=== PATIENT | female | born 1945 | race Caucasian/White ===

== ENCOUNTER 2019-08-27 20:40 | Emergency (ER) | payer MEDICARE, OTHER ==
[~2019-08-27] VITALS: Ht 149.9 cm; Wt 72.6 kg
[2019-08-27 20:40] VITALS: BP 155/71
--- NOTE | 2019-08-27 20:40 | NUR ---
PT ANNIE BLS. TAKEN TO BED 10
--- NOTE | 2019-08-27 21:10 | NUR ---
Dr. Navarro examining patient.
--- NOTE | 2019-08-27 21:13 | NUR ---
ERMD EVALUATING PATIENT AT BEDSIDE.
--- NOTE | 2019-08-27 21:18 | NUR ---
74 Y/O FEMALE BIBA FROM [facility]. TRANSFERING TO SHOWER AND FELL. WITNESSED WITH NO ALOC AND IS ABLE TO FOLLOW COMM[facility] XRAY PERFORMED AT FACILITY. T10 FX FOUND. PT C/O SEVERE 9/10 PAIN. NON-AMBULATORY BASELINE. MOVES AROUND WITH WHEEL CHAIR. 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 PATIENT IS ABLE TO REPOSITION WITH ASSISTANCE. NO WOUNDS NOTED VSS. DAUGHTER AT BEDSIDE. ERMD MADE AWARE OF STATUS. PLACED ON MONITOR HX: SCHIZOPHRENIA ALLERGIES: SEE MED REC.
[2019-08-27] MEDS ORDERED: HYDROcodone/APAP 5/325 MG 1 TAB TAB PO ONE (21:25)
[2019-08-27 21:47] LABS: BASOPHILS # (AUTO) 0.1 K/uL (0.00-0.22); BASOPHILS % (AUTO) 0.9 % (0.0-2.0); EOSINOPHILS # (AUTO) 0.3 K/uL (0-0.4); EOSINOPHILS % (AUTO) 3.1 % (0.0-4.0); HEMATOCRIT 38.8 % (36-48); HEMOGLOBIN 12.9 g/dL (12.0-16.0); LYMPHOCYTES # (AUTO) 1.9 K/uL (2.5-16.5); LYMPHOCYTES % (AUTO) 17.9 % (20.5-51.1); MEAN CORPUSCULAR HEMOGLOBIN 30 pg (27-31); MEAN CORPUSCULAR HGB CONC 33 g/dL (33-37); MEAN CORPUSCULAR VOLUME 89.8 fL (80-94); MONOCYTES # (AUTO) 0.8 K/uL (0.8-1.0); MONOCYTES % (AUTO) 7.9 % (1.7-9.3); NEUTROPHILS # (AUTO) 7.5 K/uL (1.8-7.7); NEUTROPHILS % (AUTO) 70.2 % (42.2-75.2); PLATELET COUNT (AUTO) 363 K/uL (140-450); RED BLOOD CELL COUNT(AUTO) 4.32 MIL/uL (4.20-5.40); RED CELL DISTRIBUTION WIDTH 13.3 % (11.6-13.7); WHITE BLOOD COUNT (AUTO) 10.7 K/uL (4.8-10.8)
[2019-08-27 22:13] LABS: ANION GAP 13.7 (8-16); CHLORIDE 102 mmol/L (98-107); GLUCOSE 129 mg/dL (74-106); POTASSIUM 3.7 mmol/L (3.5-5.1); SODIUM SERUM 139 mmol/L (136-145); UREA NITROGEN, BLOOD 15 mg/dL (7-18)
[2019-08-27 22:14] LABS: CREATININE 0.6 mg/dL (0.6-1.3)
--- NOTE | 2019-08-27 22:15 | NUR ---
PATIENT TAKEN TO CT.
--- NOTE | 2019-08-27 22:46 | NUR ---
X-Ray at bedside.
--- NOTE | 2019-08-27 23:35 | NUR ---
REPOSITIONED PATIENT TO SUPINE WITH PILLOW WEDGE IN BETWEEN LEGS. VSS. WILL CONTINUE TO MONITOR.
--- NOTE | 2019-08-28 01:03 | NUR ---
PATIENT IN NO DISTRESS AT THIS TIME. WILL CONTINUE TO MONITOR.
[2019-08-28] MEDS ORDERED: HYDROcodone/APAP 5/325 MG 1 TAB TAB PO ONE (01:25)
--- NOTE | 2019-08-28 03:50 | NUR ---
PATIENT IS EATING QUIETLY IN BED.
--- NOTE | 2019-08-28 05:02 | NUR ---
GAVE REPORT TO JULIO ACEVES AT [facility]. [place] ETA [id number]. PT.'S VSS. NOTIFIED . WILL CONTINUE TO MONITOR.
[2019-08-28 05:30] VITALS: BP 121/49
--- NOTE | 2019-08-28 05:30 | NUR ---
Patient discharged with v/s stable. Written and verbal after care instructions given and explained. Patient alert, oriented and verbalized understanding of instructions. Ambulance Transport with to intermediate. All questions addressed prior to discharge. ID band removed. Patient advised to follow up with PMD. Rx of NORCO given. Patient educated on indication of medication including possible reaction and side effects. Opportunity to ask questions provided and answered.
== END 2019-08-28 05:30 | disposition home or self-care (01) ==
LOC: MED 20:40
DX: M54.9 Dorsalgia, unspecified (principal); M25.551 Pain in right hip; M79.604 Pain in right leg; S22.060D Wedge compression fracture of T7-T8 vertebra, subsequent encounter for fracture with routine healing; M06.9 Rheumatoid arthritis, unspecified; F20.9 Schizophrenia, unspecified; Z88.6 Allergy status to analgesic agent; Z88.8 Allergy status to other drugs, medicaments and biological substances
CPT/HCPCS: 36415; 72128; 72131; 72170; 73502; 80048; 85025; 99284

== ENCOUNTER 2019-09-06 11:20 | Inpatient (IN) | payer OTHER, MEDICARE ==
[~2019-09-06] VITALS: Ht 149.9 cm; Wt 81.6 kg
[2019-09-06 11:20] VITALS: BP 117/45
--- NOTE | 2019-09-06 11:20 | NUR ---
PT BRANDIA BLS TO ER BED 09
--- NOTE | 2019-09-06 11:24 | NUR ---
ER AT BEDSIDE
--- NOTE | 2019-09-06 11:25 | NUR ---
[facility]O CHEST PAIN. PT WAS GIVEN TYLENOL AT FACILITY. PER PT "I HAVE BEEN HAVING CHEST PAIN SINCE LAST NIGHT AT 3AM, PRESSURE PAIN." PT DENIES ANY CHEST PAIN AT THIS TIME. PAIN LEVEL 0/10. PAIN RELIEVED BY TYLENOL, GIVEN AT FACILITY. PT ALERT AND ORIENTED. VSS. DENIES N/V/D. SAFETY MEASURES IN PLACE. BED IN LOWEST POSITION, HOB ELEVATED, BED RAILS UP X 2. ERMD AT BEDSIDE. ALLERGIES: ETANERCEPT AND IBUPROFEN. MED HX: RHEUMATOID ARTHRITIS, SCHIZOPHRENIA, SHIZOAFFECTIVE DISORDER, BIPOLAR DISORDER, DEPRESSION, OSTEOPORISIS, ANEMIA, HYPOTHYROIDISM, GLAUCOMA, LACK OF COORDINATION, GERD, ARTHROGRYPOSIS MYULTIPLEX CONGENITA, CATATONIC DISORDER,
[2019-09-06] MEDS ORDERED: ASPIRIN 81 MG TAB.CHEW PO ONE (11:35)
--- NOTE | 2019-09-06 11:49 | NUR ---
XRAY AT BEDSIDE
--- NOTE | 2019-09-06 12:05 | NUR ---
EKG PERFORMED AT BEDSIDE
[2019-09-06 12:44] LABS: BASOPHILS # (AUTO) 0.1 K/uL (0.00-0.22); BASOPHILS % (AUTO) 0.7 % (0.0-2.0); EOSINOPHILS # (AUTO) 0.4 K/uL (0-0.4); EOSINOPHILS % (AUTO) 4.5 % (0.0-4.0); HEMATOCRIT 38.7 % (36-48); LYMPHOCYTES # (AUTO) 2.1 K/uL (2.5-16.5); LYMPHOCYTES % (AUTO) 25.1 % (20.5-51.1); MEAN CORPUSCULAR HEMOGLOBIN 30 pg (27-31); MEAN CORPUSCULAR HGB CONC 34 g/dL (33-37); MEAN CORPUSCULAR VOLUME 89.6 fL (80-94); MONOCYTES # (AUTO) 0.6 K/uL (0.8-1.0); MONOCYTES % (AUTO) 6.6 % (1.7-9.3); NEUTROPHILS # (AUTO) 5.4 K/uL (1.8-7.7); NEUTROPHILS % (AUTO) 63.1 % (42.2-75.2); PLATELET COUNT (AUTO) 418 K/uL (140-450); RED BLOOD CELL COUNT(AUTO) 4.32 MIL/uL (4.20-5.40); RED CELL DISTRIBUTION WIDTH 13.6 % (11.6-13.7); WHITE BLOOD COUNT (AUTO) 8.5 K/uL (4.8-10.8)
[2019-09-06 12:47] LABS: ANION GAP 9.4 (8-16); CARBON DIOXIDE 29.7 mmol/L (21-32); CHLORIDE 103 mmol/L (98-107); CREATININE 0.6 mg/dL (0.6-1.3); GLUCOSE 114 mg/dL (74-106); POTASSIUM 4.1 mmol/L (3.5-5.1); SODIUM SERUM 138 mmol/L (136-145); UREA NITROGEN, BLOOD 13 mg/dL (7-18)
--- NOTE | 2019-09-06 13:00 | NUR ---
PT RESTING IN BED. VSS. DAUGHTER AT BEDSIDE. WILL CONTINUE TO MONITOR.
[2019-09-06] MEDS ORDERED: LORazepam 2 MG/ML VIAL IVP PRN (14:55)
[2019-09-06] MEDS ORDERED: ACETAMINOPHEN 325 MG TAB PO PRN (14:55)
[2019-09-06] MEDS ORDERED: ONDANSETRON 4 MG/2 ML VIAL IVP PRN (14:55)
[2019-09-06] MEDS ORDERED: SERT50TA PO (15:00)
[2019-09-06] MEDS ORDERED: MELA5SGL PO (15:00)
[2019-09-06] MEDS ORDERED: SYN.05 PO (15:00)
[2019-09-06] MEDS ORDERED: BER PO (15:00)
[2019-09-06] MEDS ORDERED: HYDR-5122 PO (15:00)
[2019-09-06] MEDS ORDERED: CRAN450T5 PO (15:00)
[2019-09-06] MEDS ORDERED: MULT-1640 PO (15:00)
[2019-09-06] MEDS ORDERED: CYCL10TA33 PO (15:00)
[2019-09-06] MEDS ORDERED: XALOS OP (15:00)
[2019-09-06] MEDS ORDERED: DOCU250S72 PO (15:00)
[2019-09-06] MEDS ORDERED: FAMO-90 PO (15:00)
[2019-09-06] MEDS ORDERED: HYDR200T5 PO (15:00)
[2019-09-06] MEDS ORDERED: ARIP20TA1 PO (15:00)
--- NOTE | 2019-09-06 15:00 | NUR ---
PT REPOSITIONED FOR COMFORT. VSS. WILL CONTINUE TO MONITOR.
--- NOTE | 2019-09-06 16:15 | NUR ---
Transfer of care and report given to Jason RN
--- NOTE | 2019-09-06 16:15 | NUR ---
Patient will be admitted to care of Dr. Calabrese. Admited to Tele. Will go to room 122a. Belongings list completed. Report to JULIO Gomez.
--- NOTE | 2019-09-06 16:16 | NUR ---
PATIENT ARRIVED FROM ER VIA GURNEY, PATIENT TRANSFERRED TO THE BED. REPORT RECEIVED FROM EDGE BANDER HAND TEGAN. RESPIRATIONS EVEN AND UNLABORED ON ROOM AIR. VS WNL. IV SITE INTACT, PATENT AND SALINE LOCKED. NO SOB OR DISTRESS NOTED. DAUGHTER RAND AT BEDSIDE. PATIENT INCONTINENT. MRSA SCREENING DONE. UPDATED BOARD. ORIENTED PATIENT AND DAUGHTER TO TV, CALL LIGHT, VISITING HOURS, AND PLAN OF CARE. THEY BOTH VERBALIZED UNDERSTANDING. SAFETY PRECAUTIONS IN PLACE, BED IN LOWEST POSITION WITH ALARM ON, CALL LIGHT WITHIN REACH. WILL CONTINUE TO MONITOR PATIENT.
[2019-09-06 16:20] VITALS: BP 122/50
--- NOTE | 2019-09-06 17:10 | NUR ---
PATIENT'S DAUGHTER RAND AT BEDSIDE. SHE WILL TAKE HOME ALL OF PATIENT'S BELONGINGS. PATIENT REFUSES FLU VACCINE, STATES THAT SHE ALREADY RECEIVED HER PNA VACCINE. WILL FOLLOW UP ON THAT INFORMATION WITH [facility]. SAFETY PRECAUTIONS IN PLACE, CALL LIGHT WITHIN REACH, BED IN LOWEST POSITION WITH ALARM ON, WILL CONTINUE TO MONITOR PATIENT.
[2019-09-06] MEDS ORDERED: HYDROcodone/APAP 5/325 MG 1 TAB TAB PO PRN (17:55)
--- NOTE | 2019-09-06 18:13 | NUR ---
PAGED DR. VALDES ABOUT PATIENT'S MEDICATIONS. DR. BECKY LOPEZ LICENSED MARINE ENGINEER. DR LOPEZ CALLED BACK. HOME MEDICATIONS CAN BE CONTINUED. ORDERS NOTED AND WILL BE CARRIED OUT.
--- NOTE | 2019-09-06 19:23 | NUR ---
REPORT GIVEN TO TEACHER INDUSTRIAL ARTS NURSE AT BEDSIDE FOR CONTINUITY OF CARE. PATIENT IN STABLE CONDITION.
--- NOTE | 2019-09-06 19:24 | NUR ---
RECEIVED BEDSIDE REPORT FROM DAY SHIFT NURSE LAYNE RN, PT STABLE, NO DISTRESS NOTED, IV TO R FA 22G PATENT INTACT, SL, PT ON ROOM AIR NO SOB NOTED, INITIAL ASSESSMENT DONE, ALL SAFET PRECAUTION MET, CALL LIGHT WITHIN REACH, WILL CONTINUE TO MONITOR.
[2019-09-06 20:00] VITALS: BP 119/59
[2019-09-06] MEDS ORDERED: CYCLOBENZAPRINE 10 MG TAB ONE (20:16)
[2019-09-06] MEDS: CYCLOBENZAPRINE 10 MG TAB PO SCH (20:17)
[2019-09-06] MEDS: DOCUSATE SODIUM 100 MG GELCAP PO SCH (20:17)
[2019-09-06] MEDS: HYDROcodone/APAP 5/325 MG 1 TAB TAB PO PRN (20:17)
--- NOTE | 2019-09-06 20:17 | NUR ---
DUE MEDICATION GIVEN, PT C/O PAIN, MEDICATION PER DR ORDER ADMINISTERED, PT TOLERATED WELL, NO DISTRESS NOTED, CALL LIGHT WITHIN REACH, WILL CONTINUE TO MONITOR.
[2019-09-06] MEDS ORDERED: LATANOPROST 0.005% OP 2.5 ML BTL OP SCH (21:00)
[2019-09-06] MEDS ORDERED: ARIPiprazole 10 MG TAB PO SCH (21:00)
--- NOTE | 2019-09-06 22:01 | NUR ---
PT C/O SOB, PO2 NORMAL 95%, PUT PT ON 1LPM O2 VIA NC. PT RESTING, NO DISTRESS NOTED, CALL LIGHT WITHIN REACH.
--- NOTE | 2019-09-06 23:10 | NUR ---
PT C/O HARD TO BREATH, CALLED RT. PT PO2 STILL WITHIN NORMAL LIMITS, PT RESTING, CALL LIGHT WITHIN REACH, AWAITING FOR RT TO COME.
[2019-09-06] MEDS: ALBUTEROL 0.083% 2.5 MG/3 ML NEBU INH PRN (23:17)
--- NOTE | 2019-09-06 23:17 | NUR ---
RN CALLED RT TO PT ROOM, BREATH SOUNDS ASSESSMENT SHOWS THAT PT WAS WHEEZING. ALB PRN WAS GIVE ORDERED. PT TOLERATED TX WELL. NO ADVERSE REACTION. RT WILL CONTINUE TO MONITOR PT
[2019-09-07] VITALS: BP 115/62
--- NOTE | 2019-09-07 00:01 | NUR ---
PT RESTING, NO DISTRESS NOTED, V/S TAKEN, WNL, CALL LIGHT WITHIN REACH, WILL CONTINUE TO MONITOR.
--- NOTE | 2019-09-07 02:16 | NUR ---
PT RESTING, NO DISTRESS NOTED, CALL LIGHT WITHIN REACH, WILL CONTINUE TO MONITOR.
[2019-09-07 04:00] VITALS: BP 139/59
[2019-09-07] MEDS: HYDROcodone/APAP 5/325 MG 1 TAB TAB PO PRN ×3 (04:31→16:43)
--- NOTE | 2019-09-07 04:31 | NUR ---
PT C/O PAIN, MEDICATION ADMINISTERED, PT TOLERATED WELL, NO DISTRESS NOTED, CALL LIGHT WITHIN REACH, WILL CONTINUE TO MONITOR.
[2019-09-07] MEDS ORDERED: FAMOTIDINE 20 MG TAB PO SCH (06:30)
[2019-09-07] MEDS ORDERED: LEVOTHYROXINE 0.05 MG TAB PO SCH (06:30)
--- NOTE | 2019-09-07 06:48 | NUR ---
PATIENT HAS BEEN SCREENED AND CATEGORIZED MODERATE NUTRITION RISK. PATIENT WILL BE SEEN WITHIN 3-5 DAYS OF ADMISSION. 09/09/19-09/11/19 LUCIE RANDLE MS, RDN
--- NOTE | 2019-09-07 07:23 | NUR ---
ENDORSED PT TO DAY SHIFT NURSE CAT RN, PT STABLE, NO DISTRESS NOTED, CALL LIGHT WITHIN REACH.
--- NOTE | 2019-09-07 07:42 | NUR ---
RECEIVED HAND OFF REPORT FROM PM RN PT APPEARS STABLE AND IN NO APPARENT DISTRESS. ALL SAFETY MEASURES ARE IN PLACE WILL CONTINUE TO MONITOR
[2019-09-07 08:25] VITALS: BP 111/71
[2019-09-07] MEDS: DOCUSATE SODIUM 100 MG GELCAP PO SCH (08:51)
[2019-09-07] MEDS: CYCLOBENZAPRINE 10 MG TAB PO SCH ×3 (08:51→16:46)
[2019-09-07 08:56] LABS: BASOPHILS # (AUTO) 0.1 K/uL (0.00-0.22); BASOPHILS % (AUTO) 0.8 % (0.0-2.0); EOSINOPHILS # (AUTO) 0.4 K/uL (0-0.4); EOSINOPHILS % (AUTO) 5.1 % (0.0-4.0); HEMOGLOBIN 11.8 g/dL (12.0-16.0); LYMPHOCYTES # (AUTO) 2.4 K/uL (2.5-16.5); LYMPHOCYTES % (AUTO) 28.3 % (20.5-51.1); MEAN CORPUSCULAR HEMOGLOBIN 30 pg (27-31); MEAN CORPUSCULAR HGB CONC 33 g/dL (33-37); MEAN CORPUSCULAR VOLUME 90.6 fL (80-94); MONOCYTES # (AUTO) 0.6 K/uL (0.8-1.0); MONOCYTES % (AUTO) 7.4 % (1.7-9.3); NEUTROPHILS # (AUTO) 4.9 K/uL (1.8-7.7); NEUTROPHILS % (AUTO) 58.4 % (42.2-75.2); PLATELET COUNT (AUTO) 402 K/uL (140-450); RED BLOOD CELL COUNT(AUTO) 3.97 MIL/uL (4.20-5.40); RED CELL DISTRIBUTION WIDTH 13.5 % (11.6-13.7); WHITE BLOOD COUNT (AUTO) 8.4 K/uL (4.8-10.8)
[2019-09-07] MEDS ORDERED: VITAMIN B COMPLEX W/C 1 TAB PO SCH (09:00)
[2019-09-07] MEDS ORDERED: ENOXAPARIN 40 MG/0.4 ML SYR SUBQ SCH (09:00)
[2019-09-07] MEDS ORDERED: HYDROXYCHLOROQUINE 200 MG TAB PO SCH (09:00)
[2019-09-07] MEDS ORDERED: SERTRALINE 50 MG TAB PO SCH (09:00)
--- NOTE | 2019-09-07 09:21 | NUR ---
FREQUENT ROUNDING ON PT OFFERED REPOSITIONING PT REFUSED STATED IT HURTS HER, WILL CONTINUE TO MONITOR
[2019-09-07 10:20] LABS: ANION GAP 15.1 (8-16); CARBON DIOXIDE 25.9 mmol/L (21-32); CHLORIDE 98 mmol/L (98-107); CREATININE 0.7 mg/dL (0.6-1.3); GLUCOSE 112 mg/dL (74-106); SODIUM SERUM 135 mmol/L (136-145); UREA NITROGEN, BLOOD 12 mg/dL (7-18)
[2019-09-07 10:32] LABS: ALBUMIN 2.9 g/dL (3.4-5.0); ASPARTATE AMINOTRANSFERASE 25 U/L (15-37); TOTAL BILIRUBIN 0.4 mg/dL (0.0-1.0)
--- NOTE | 2019-09-07 11:13 | NUR ---
FREQUENT ROUNDING ON PT PT APPEARS STABLE AND IN NO APPARENT DISTRESS, ALL SAFETY MEASURES ARE IN PLACE WILL CONTINUE TO MONITOR. O2 2L NASAL CANULA
[2019-09-07] MEDS ORDERED: MAGNESIUM HYDROXIDE 2400 MG/30 ML UDC PO SCH (12:00)
--- NOTE | 2019-09-07 12:31 | NUR ---
DISCHARGE PLANNING: PER JUICE OF [facility], PATIENT IS ALF. CONTACTED [facility] AT [phone], ABLE TO SPEAK TO FLOWER REGARDING DC PLAN FOR SNF FOR PT. SHE STATED TO FAX OVER PT NOTES. NOT SEEN BY PT AT THIS TIME. SENT A PAGED TO DR. VALDES FOR CLARIFICATION OF ORDER FOR SNF PT. AWAITING FOR CALL BACK. Addendum: 09/07/19 at 1236 by Cheyenne Rosales CM RECEIVED A CALL BACK FROM DR. VALDES. HE STATED PATIENT CAN GO BACK TO SNF ALF AND IS RECOMMENDING PT FOR CHEST AND BACK PAIN DUE TO MUSCLE SPASM. Addendum: 09/07/19 at 1242 by Cheyenne Rosales CM PER FLOWER OF [facility], SHE WILL BE OUT OF THE OFFICE STARTING AT 1230 AND PABLO [phone] WILL BE COVERING HER. CONTACTED THE PROVIDED NUMBER FOR P[facility], NO ANSWER. LEFT MESSAGE. Addendum: 09/07/19 at 131 by Cheyenne Rosales CM RECEIVED A CALL FROM PABLO OF [facility], SHE PROVIDED ME WITH [facility] [phone] AND TRANSPORT AUTH [id number] WITH . PER SCOTT CURTISSOURCING COORDINATOR [place] [facility] GO TO ROOM 50C UNDER DR. TRINY CLARKE. Addendum: 09/07/19 at 7388 by Cheyenne Rosales CM CONTACTED [facility] AT [phone], ABLE TO SPEAK TO YOLETTE. FLORAL ARTIST WILL BE AT 1800. PRIMARY RN, CHARGE NURSE AND SCOTT CURTISSOURCING COORDINATOR [place] [facility] [place] AWARE. CONTACTED PATIENT'S DAUGHTER RAND JOEL AT [phone], MADE AWARE OF PATIENT DISCHARGING BACK [place] [facility]. ABLE TO VERBALIZE UNDERSTANDING.
[2019-09-07 12:49] VITALS: BP 104/66
--- NOTE | 2019-09-07 13:46 | NUR ---
FREQUENT ROUNDING ON PT PT APPEARS STABLE AND IN NO APPARENT DISTRESS, ALL SAFETY MEASURES ARE IN PLACE WILL CONTINUE TO MONITOR
[2019-09-07] MEDS: ALBUTEROL 0.083% 2.5 MG/3 ML NEBU INH PRN (14:10)
--- NOTE | 2019-09-07 15:51 | NUR ---
CALLED [facility]. AND GAVE REPORT TO SCOTT KIM INFORMED HER THAT THE PLANNED FLEET SALES ASSOCIATE TIME IS FOR 1800.
[2019-09-07 15:52] VITALS: BP 104/66
[2019-09-07 16:43] VITALS: BP 104/66
--- NOTE | 2019-09-07 17:16 | NUR ---
SPOKE WITH THE PATIENTS DAUGHTER RAND. SHE IS AWARE OF THE PLAN FOR THE PATIENT TO BE TRANSFERRED AT 1800. SHE STATED SHE WAS PLANNING ON COMING TO VISIT SOON SO SHE WILL BE PLANNING ACCORDINGLY/
--- NOTE | 2019-09-07 17:18 | NUR ---
FREQUENT ROUNDING ON PT PT APPEARS STABLE AND IN NO APPARENT DISTRESS. ALL SAFETY MEASURES ARE IN PLACE WILL CONTINUE TO MONITOR. PT IS ON 2L NASAL CANULA.
--- NOTE | 2019-09-07 18:45 | NUR ---
PT PICKED UP BY [facility]. IV REMOVED. ID BAND REMOVED. GAVE DISCHARGE PACKET FOR PATIENT AND FOR [facility] TO TRANSPORTATION. PT APPEARS STABLE AND IN NO APPARENT DISTRESS. PT TAKEN VIA GURNEY WITH O2 2L NASAL CANULA
== END 2019-09-07 18:45 | DRG 351 ==
LOC: MED 11:20 → MTU 15:00
PROVIDERS: ADMIT Internal Medicine Pulmonary Disease; ATTEND Internal Medicine Pulmonary Disease
DX: M62.838 Other muscle spasm (principal); M06.9 Rheumatoid arthritis, unspecified; F20.9 Schizophrenia, unspecified; M94.0 Chondrocostal junction syndrome [Tietze]; K21.9 Gastro-esophageal reflux disease without esophagitis; F31.9 Bipolar disorder, unspecified; I10 Essential (primary) hypertension; E03.9 Hypothyroidism, unspecified; Z88.8 Allergy status to other drugs, medicaments and biological substances; Z88.0 Allergy status to penicillin
CPT/HCPCS: 36415; 71045; 80048; 80053; 84484; 85025; 87081; 94640; 99285; J1650; J7613; Q0092

== ENCOUNTER 2023-07-19 10:57 | Inpatient (IN) | payer OTHER, MEDICARE ==
[~2023-07-19] VITALS: Ht 144.8 cm; Wt 69.9 kg
[~2023-07-19 10:57] MED LIST: ARIP20TA1 PO; ARIP30TA1 PO; B-CO1TAB3 PO; CRAN450T5 PO; CYCL10TA33 PO; DEXT100S62 IV; DOCU250S72 PO; FAMO-90 PO; HYDR-5122 PO; HYDR200T65 PO; LEVO0.3T5 PO; MELA5SGL PO; MULT-1640 PO; SERT50TA PO; SYN.05 PO; XALOS OP
[2023-07-19 11:17] VITALS: BP 102/47; PULSE 131; RESP 35; TEMP 99; O2SAT 95
[2023-07-19] MEDS ORDERED: NACL 0.9% 2,000 ML IV SCH (11:25)
[2023-07-19 11:38] LABS: HEMATOCRIT 32.9 % (36-48); HEMOGLOBIN 10.8 g/dL (12.0-16.0); MEAN CORPUSCULAR HEMOGLOBIN 28 pg (27-31); MEAN CORPUSCULAR HGB CONC 33 g/dL (33-37); MEAN CORPUSCULAR VOLUME 84.6 fL (80-94); PLATELET COUNT (AUTO) 526 K/uL (140-450); RED BLOOD CELL COUNT(AUTO) 3.89 MIL/uL (4.20-5.40); RED CELL DISTRIBUTION WIDTH 14.6 % (11.6-13.7)
[2023-07-19 11:47] LABS: WHITE BLOOD COUNT (AUTO) 39.3 K/uL (4.8-10.8)
[2023-07-19 11:53] LABS: FLU A ANTIGEN negative (NEGATIVE); FLU B ANTIGEN NEGATIVE (NEGATIVE)
[2023-07-19 11:55] LABS: APPEARANCE,URINE CLEAR (CLEAR); BILIRUBIN,URINE 2+ (NEGATIVE); BLOOD, URINE 2+ (NEGATIVE); COLOR,URINE YELLOW (YELLOW); LEUKOCYTE ESTERASE ,URINE 3+ (NEGATIVE); NITRITE, URINE NEGATIVE (NEGATIVE); PROTEIN,URINE 2+ (NEGATIVE); UGLUCOSE NEGATIVE (NEGATIVE)
[2023-07-19] MEDS ORDERED: cefTRIAXone 1,000 MG VIAL ONE (11:57)
[2023-07-19 12:00] LABS: ALANINE AMINOTRANSFERASE 96 U/L (12-78); ALBUMIN 1.8 g/dL (3.4-5.0); ALKALINE PHOSPHATASE 254 U/L (50-136); ANION GAP 16.3 (8-16); ASPARTATE AMINOTRANSFERASE 135 U/L (15-37); CALCIUM 9.1 mg/dL (8.5-10.1); CARBON DIOXIDE 23.2 mmol/L (21-32); CHLORIDE 104 mmol/L (98-107); CREATININE 1.6 mg/dL (0.6-1.3); GLUCOSE 151 mg/dL (74-106); POTASSIUM 5.5 mmol/L (3.5-5.1); SODIUM SERUM 138 mmol/L (136-145); TOTAL BILIRUBIN 1.3 mg/dL (0.0-1.0); UREA NITROGEN, BLOOD 37 mg/dL (7-18)
[2023-07-19 12:07] LABS: LACTIC ACID 3.1 mmol/L (0.4-2.0)
[2023-07-19] MEDS ORDERED: PANTOPRAZOLE 40 MG INJ VIAL IVP ONE (12:10)
[2023-07-19 12:12] LABS: CREATINE KINASE, TOTAL 128 U/L (26-192); FREE T4 (FREE THYROXINE) 2.75 ng/dL (0.76-1.46); LIPASE 135 U/L (73-393); THYROID STIMULATING HORMONE 0.71 uIU/mL (0.34-3.74)
[2023-07-19 12:14] LABS: BACTERIA,URINE 2+ /HPF (None Seen); ICTOTEST NEGATIVE (NEGATIVE); SQUAMOUS EPITHELIAL CELL,UR 4-10 (MOD) /LPF (0-3 (FEW)); WBC,URINE 80-100 /HPF (0-5)
[2023-07-19] MEDS ORDERED: VANCOMYCIN 1,000 MG in DEXTROSE 5% 250 ML IV ONE (13:15)
[2023-07-19 14:16] LABS: LYMPHOCYTES % (MANUAL) 3 % (20-46); MONOCYTES % (MANUAL) 2 % (5-12)
[2023-07-19 14:17] LABS: PLATELET ESTIMATE INCREASED; PROMYELOCYTES % 1 % (0-0)
[2023-07-19] MEDS ORDERED: VANCOMYCIN 1,000 MG VIAL ONE (14:22)
[2023-07-19] MEDS ORDERED: ONDANSETRON 4 MG/2 ML VIAL IVP PRN (18:15)
[2023-07-19] MEDS ORDERED: ACETAMINOPHEN 325 MG TAB PO PRN (18:15)
[2023-07-19] MEDS ORDERED: LORazepam 2 MG/ML VIAL IVP PRN (18:15)
[2023-07-19] MEDS: NACL 0.9% 1,000 ML IV SCH (19:07)
[2023-07-19 19:48] VITALS: BP 123/65; PULSE 112; RESP 18; TEMP 98.2; O2SAT 99
[2023-07-19 20:00] VITALS: PULSE 112; RESP 18; O2SAT 99
[2023-07-19] MEDS: MORPHINE SULFATE 2 MG/ML SYR IVP PRN (20:20)
[2023-07-20] VITALS (7 sets, daily range): BP systolic 100–140; BP diastolic 48–74; PULSE 108–121; RESP 18–20; TEMP 97.3–98.8; O2SAT 94–100
[2023-07-20] MEDS: NACL 0.9% 1,000 ML IV SCH ×3 (04:08→13:12)
[2023-07-20 05:43] LABS: BASOPHILS # (AUTO) 0.1 K/uL (0.00-0.22); BASOPHILS % (AUTO) 0.3 % (0.0-2.0); EOSINOPHILS # (AUTO) 0.4 K/uL (0-0.4); EOSINOPHILS % (AUTO) 1.7 % (0.0-4.0); HEMATOCRIT 27.1 % (36-48); HEMOGLOBIN 8.8 g/dL (12.0-16.0); LYMPHOCYTES # (AUTO) 1.7 K/uL (2.5-16.5); LYMPHOCYTES % (AUTO) 6.6 % (20.5-51.1); MEAN CORPUSCULAR HEMOGLOBIN 28 pg (27-31); MEAN CORPUSCULAR HGB CONC 32 g/dL (33-37); MEAN CORPUSCULAR VOLUME 85.6 fL (80-94); MONOCYTES # (AUTO) 1.4 K/uL (0.8-1.0); MONOCYTES % (AUTO) 5.4 % (1.7-9.3); NEUTROPHILS # (AUTO) 21.8 K/uL (1.8-7.7); PLATELET COUNT (AUTO) 416 K/uL (140-450); RED BLOOD CELL COUNT(AUTO) 3.17 MIL/uL (4.20-5.40); RED CELL DISTRIBUTION WIDTH 14.4 % (11.6-13.7)
[2023-07-20 05:56] LABS: ANION GAP 9.5 (8-16); CALCIUM 7.6 mg/dL (8.5-10.1); CHLORIDE 110 mmol/L (98-107); CREATININE 0.9 mg/dL (0.6-1.3); GLUCOSE 152 mg/dL (74-106); POTASSIUM 3.5 mmol/L (3.5-5.1); SODIUM SERUM 141 mmol/L (136-145); UREA NITROGEN, BLOOD 24 mg/dL (7-18)
[2023-07-20 06:00] LABS: WHITE BLOOD COUNT (AUTO) 25.3 K/uL (4.8-10.8)
[2023-07-20] MEDS: FOAM DRESSING TP SCH (13:10)
[2023-07-20] MEDS: NON ADHERENT DRESSING TP SCH (13:10)
[2023-07-20] MEDS: Z-GUARD PASTE TP SCH (13:10)
[2023-07-20] MEDS: MAG SULF 2000 MG/WATER PREMIX 50 ML IV PRN (15:55)
[2023-07-21] VITALS (8 sets, daily range): BP systolic 128–149; BP diastolic 53–68; PULSE 94–113; RESP 17–19; TEMP 97.5–97.9; O2SAT 94–97
[2023-07-21] MEDS: NACL 0.9% 1,000 ML IV SCH ×3 (01:36→19:01)
[2023-07-21] MEDS: Z-GUARD PASTE TP SCH ×2 (01:46→13:00)
[2023-07-21 10:49] LABS: MEAN CORPUSCULAR HEMOGLOBIN 27 pg (27-31); MEAN CORPUSCULAR HGB CONC 32 g/dL (33-37)
[2023-07-21 11:05] LABS: RED BLOOD CELL COUNT(AUTO) 3.45 MIL/uL (4.20-5.40); WHITE BLOOD COUNT (AUTO) 25.4 K/uL (4.8-10.8)
[2023-07-21 11:06] LABS: HEMATOCRIT 29.1 % (36-48); HEMOGLOBIN 9.4 g/dL (12.0-16.0); MEAN CORPUSCULAR VOLUME 84.3 fL (80-94); PLATELET COUNT (AUTO) 434 K/uL (140-450); RED CELL DISTRIBUTION WIDTH 14.5 % (11.6-13.7)
[2023-07-21 11:09] LABS: ALANINE AMINOTRANSFERASE 47 U/L (12-78); ALBUMIN 1.5 g/dL (3.4-5.0); ALKALINE PHOSPHATASE 142 U/L (50-136); ANION GAP 9.7 (8-16); ASPARTATE AMINOTRANSFERASE 32 U/L (15-37); CALCIUM 7.8 mg/dL (8.5-10.1); CARBON DIOXIDE 26.1 mmol/L (21-32); CHLORIDE 106 mmol/L (98-107); CREATININE 0.7 mg/dL (0.6-1.3); GLUCOSE 163 mg/dL (74-106); MAGNESIUM 1.7 mg/dL (1.8-2.4); SODIUM SERUM 139 mmol/L (136-145); TOTAL BILIRUBIN 0.3 mg/dL (0.0-1.0); TOTAL PROTEIN, SERUM 7.1 g/dL (6.4-8.2); UREA NITROGEN, BLOOD 13 mg/dL (7-18)
[2023-07-21 11:13] LABS: POTASSIUM 2.8 mmol/L (3.5-5.1)
[2023-07-21 11:23] LABS: EOSINOPHILS % (MANUAL) 1 % (0-4); LYMPHOCYTES % (MANUAL) 7 % (20-46)
[2023-07-21 11:29] LABS: MONOCYTES % (MANUAL) 7 % (5-12)
[2023-07-21] MEDS ORDERED: POTASSIUM CHLORIDE 20% 40 MEQ/15 ML UDC PO PRN (11:45)
[2023-07-21] MEDS ORDERED: POTASSIUM CHLORIDE 20% 40 MEQ/15 ML UDC PO SCH ×2 (12:00→15:00)
[2023-07-21] MEDS: MAG SULF 2000 MG/WATER PREMIX 50 ML IV PRN (12:26)
[2023-07-21] MEDS: FOAM DRESSING TP SCH (13:00)
[2023-07-21] MEDS: NON ADHERENT DRESSING TP SCH (13:00)
[2023-07-21] MEDS ORDERED: LEVOTHYROXINE 0.1 MG TAB PO SCH (13:25)
[2023-07-21] MEDS ORDERED: ARIPiprazole 10 MG TAB PO SCH (14:00)
[2023-07-21 16:35] LABS: BLOOD GAS PH 7.467 (7.35-7.45)
[2023-07-21 16:36] LABS: BLOOD GAS BASE EXCESS -3.6 mmol/L (-2.0-2.0); BLOOD GAS HCO3 18.9 mmol/L (22-26); BLOOD GAS O2 SAT% 97.3 % (92.0-98.5); BLOOD GAS PCO2 26.8 mmHg (35-45); BLOOD GAS PO2 88.2 mmHg (75-100)
[2023-07-21] MEDS: PIPERACILLIN/TAZOBACTAM 3.375 GM in DEXTROSE 5% 50 ML IV SCH (21:00)
[2023-07-22] VITALS (7 sets, daily range): BP systolic 143–153; BP diastolic 53–77; PULSE 101–113; RESP 18; TEMP 97.5–98.2; O2SAT 87–97
[2023-07-22] MEDS: NACL 0.9% 1,000 ML IV SCH ×3 (02:15→18:41)
[2023-07-22] MEDS: Z-GUARD PASTE TP SCH ×2 (03:17→13:00)
[2023-07-22] MEDS: PIPERACILLIN/TAZOBACTAM 3.375 GM in DEXTROSE 5% 50 ML IV SCH ×2 (05:26→18:41)
[2023-07-22] MEDS ORDERED: LEVOTHYROXINE 0.05 MG TAB PO SCH ×2 (09:00→10:00)
[2023-07-22 09:22] LABS: ANION GAP 7.2 (8-16); CALCIUM 7.8 mg/dL (8.5-10.1); CARBON DIOXIDE 29.3 mmol/L (21-32); CHLORIDE 104 mmol/L (98-107); CREATININE 0.5 mg/dL (0.6-1.3); GLUCOSE 134 mg/dL (74-106); SODIUM SERUM 138 mmol/L (136-145); UREA NITROGEN, BLOOD 8 mg/dL (7-18)
[2023-07-22 09:49] LABS: FREE T4 (FREE THYROXINE) 1.21 ng/dL (0.76-1.46); THYROID STIMULATING HORMONE 1.61 uIU/mL (0.34-3.74)
[2023-07-22 09:54] LABS: POTASSIUM 2.5 mmol/L (3.5-5.1)
[2023-07-22] MEDS: ARIPiprazole 10 MG TAB PO SCH (10:17)
[2023-07-22] MEDS: SERTRALINE 50 MG TAB PO SCH (10:17)
[2023-07-22] MEDS ORDERED: POTASSIUM CHLORIDE 40 MEQ, LIDOCAINE 1% 25 MG in NACL 0.9% 250 ML IV SCH (10:45)
[2023-07-22] MEDS: LEVOTHYROXINE 0.1 MG TAB PO SCH (10:59)
[2023-07-22] MEDS: FOAM DRESSING TP SCH (13:00)
[2023-07-22] MEDS: NON ADHERENT DRESSING TP SCH (13:00)
[2023-07-23] VITALS: BP 147/75; PULSE 108; RESP 18; TEMP 98.2; O2SAT 97
[2023-07-23] MEDS: Z-GUARD PASTE TP SCH ×2 (01:00→19:03)
[2023-07-23] MEDS: PIPERACILLIN/TAZOBACTAM 3.375 GM in DEXTROSE 5% 50 ML IV SCH ×3 (02:20→18:33)
[2023-07-23] MEDS: NACL 0.9% 1,000 ML IV SCH ×3 (02:23→18:36)
[2023-07-23 04:00] VITALS: BP_SYST 148; PULSE 105; RESP 18; TEMP 98
[2023-07-23] MEDS: LEVOTHYROXINE 0.1 MG TAB PO SCH (06:25)
[2023-07-23 07:31] VITALS: O2SAT 99
[2023-07-23 08:00] VITALS: PULSE 98; RESP 18; TEMP 97.4; O2SAT 95; O2SAT 99
[2023-07-23] MEDS: SERTRALINE 50 MG TAB PO SCH (10:42)
[2023-07-23] MEDS: ARIPiprazole 10 MG TAB PO SCH (10:42)
[2023-07-23] MEDS: FOAM DRESSING TP SCH (13:00)
[2023-07-23] MEDS: NON ADHERENT DRESSING TP SCH (13:00)
[2023-07-23 13:16] LABS: ALANINE AMINOTRANSFERASE 27 U/L (12-78); ALBUMIN 1.4 g/dL (3.4-5.0); ALKALINE PHOSPHATASE 95 U/L (50-136); ANION GAP 3.5 (8-16); ASPARTATE AMINOTRANSFERASE 27 U/L (15-37); CALCIUM 7.5 mg/dL (8.5-10.1); CARBON DIOXIDE 33.4 mmol/L (21-32); CHLORIDE 105 mmol/L (98-107); CREATININE 0.6 mg/dL (0.6-1.3); GLUCOSE 136 mg/dL (74-106); SODIUM SERUM 139 mmol/L (136-145); TOTAL BILIRUBIN 0.3 mg/dL (0.0-1.0); TOTAL PROTEIN, SERUM 6.3 g/dL (6.4-8.2); UREA NITROGEN, BLOOD 8 mg/dL (7-18)
[2023-07-23 13:17] LABS: BASOPHILS # (AUTO) 0.1 K/uL (0.00-0.22); BASOPHILS % (AUTO) 0.5 % (0.0-2.0); EOSINOPHILS # (AUTO) 0.4 K/uL (0-0.4); EOSINOPHILS % (AUTO) 2.5 % (0.0-4.0); HEMATOCRIT 26.6 % (36-48); HEMOGLOBIN 8.7 g/dL (12.0-16.0); LYMPHOCYTES % (AUTO) 12.7 % (20.5-51.1); MEAN CORPUSCULAR HEMOGLOBIN 28 pg (27-31); MEAN CORPUSCULAR HGB CONC 33 g/dL (33-37); MEAN CORPUSCULAR VOLUME 84.6 fL (80-94); MONOCYTES # (AUTO) 0.9 K/uL (0.8-1.0); MONOCYTES % (AUTO) 5.5 % (1.7-9.3); NEUTROPHILS # (AUTO) 12.3 K/uL (1.8-7.7); NEUTROPHILS % (AUTO) 78.8 % (42.2-75.2); PLATELET COUNT (AUTO) 396 K/uL (140-450); RED BLOOD CELL COUNT(AUTO) 3.14 MIL/uL (4.20-5.40); RED CELL DISTRIBUTION WIDTH 14.1 % (11.6-13.7); WHITE BLOOD COUNT (AUTO) 15.6 K/uL (4.8-10.8)
[2023-07-23 13:21] LABS: POTASSIUM 2.9 mmol/L (3.5-5.1)
[2023-07-23] MEDS ORDERED: POTASSIUM CHLORIDE 10 MEQ TABER PO ONE ×2 (13:30→17:30)
[2023-07-23] MEDS: MAG SULF 2000 MG/WATER PREMIX 50 ML IV PRN (18:57)
[2023-07-23 20:00] VITALS: BP 140/72; PULSE 99; RESP 16; RESP 18; TEMP 97.9; O2SAT 95; O2SAT 97
[2023-07-24] MEDS: PIPERACILLIN/TAZOBACTAM 3.375 GM in DEXTROSE 5% 50 ML IV SCH ×2 (02:31→09:09)
[2023-07-24] MEDS: NACL 0.9% 1,000 ML IV SCH ×3 (03:12→18:15)
[2023-07-24] MEDS: Z-GUARD PASTE TP SCH ×2 (03:12→13:12)
[2023-07-24 04:00] VITALS: BP 162/60; PULSE 97; PULSE 99; RESP 17; TEMP 98; O2SAT 97
[2023-07-24] MEDS: LEVOTHYROXINE 0.1 MG TAB PO SCH (06:49)
[2023-07-24 07:52] VITALS: O2SAT 98
[2023-07-24 08:00] VITALS: BP 152/82; PULSE 93; RESP 18; TEMP 97.3; O2SAT 6; O2SAT 96
[2023-07-24] MEDS: ARIPiprazole 10 MG TAB PO SCH (09:07)
[2023-07-24] MEDS: SERTRALINE 50 MG TAB PO SCH (09:08)
[2023-07-24] MEDS: MORPHINE SULFATE 2 MG/ML SYR IVP PRN (09:15)
[2023-07-24] MEDS ORDERED: POTASSIUM CHLORIDE 10 MEQ TABER PO PRN (12:50)
[2023-07-24] MEDS: FOAM DRESSING TP SCH (13:15)
[2023-07-24] MEDS: NON ADHERENT DRESSING TP SCH (13:15)
[2023-07-24 16:00] VITALS: BP 139/55; PULSE 107; RESP 18; TEMP 97.6; O2SAT 95
[2023-07-24] MEDS: cefTRIAXone 2,000 MG in DEXTROSE 5% 100 ML IV SCH (16:38)
[2023-07-24 17:29] LABS: BASOPHILS # (AUTO) 0.2 K/uL (0.00-0.22); BASOPHILS % (AUTO) 0.9 % (0.0-2.0); EOSINOPHILS # (AUTO) 0.5 K/uL (0-0.4); EOSINOPHILS % (AUTO) 2.5 % (0.0-4.0); HEMATOCRIT 28.1 % (36-48); HEMOGLOBIN 9.1 g/dL (12.0-16.0); LYMPHOCYTES # (AUTO) 2.5 K/uL (2.5-16.5); LYMPHOCYTES % (AUTO) 13.3 % (20.5-51.1); MEAN CORPUSCULAR HEMOGLOBIN 27 pg (27-31); MEAN CORPUSCULAR HGB CONC 32 g/dL (33-37); MEAN CORPUSCULAR VOLUME 83.8 fL (80-94); MONOCYTES # (AUTO) 0.8 K/uL (0.8-1.0); MONOCYTES % (AUTO) 4.2 % (1.7-9.3); NEUTROPHILS # (AUTO) 14.7 K/uL (1.8-7.7); NEUTROPHILS % (AUTO) 79.1 % (42.2-75.2); PLATELET COUNT (AUTO) 511 K/uL (140-450); RED BLOOD CELL COUNT(AUTO) 3.36 MIL/uL (4.20-5.40); WHITE BLOOD COUNT (AUTO) 18.6 K/uL (4.8-10.8)
[2023-07-24 17:46] LABS: ANION GAP 10.2 (8-16); CALCIUM 7.9 mg/dL (8.5-10.1); CHLORIDE 103 mmol/L (98-107); CREATININE 0.5 mg/dL (0.6-1.3); GLUCOSE 116 mg/dL (74-106); POTASSIUM 4.2 mmol/L (3.5-5.1); SODIUM SERUM 138 mmol/L (136-145); UREA NITROGEN, BLOOD 7 mg/dL (7-18)
[2023-07-24 19:36] VITALS: PULSE 94; RESP 16; O2SAT 97
[2023-07-24 20:00] VITALS: PULSE 107; PULSE 88; RESP 16; RESP 20; O2SAT 95; O2SAT 97
[2023-07-25] MEDS: Z-GUARD PASTE TP SCH ×2 (01:31→13:58)
[2023-07-25] MEDS: NACL 0.9% 1,000 ML IV SCH ×3 (02:15→18:15)
[2023-07-25] MEDS: MORPHINE SULFATE 2 MG/ML SYR IVP PRN (03:55)
[2023-07-25 04:00] VITALS: BP 147/60; PULSE 97; RESP 18; TEMP 97.9; O2SAT 98
[2023-07-25] MEDS: LEVOTHYROXINE 0.1 MG TAB PO SCH (06:53)
[2023-07-25 07:47] VITALS: O2SAT 98
[2023-07-25 08:00] VITALS: PULSE 96; RESP 18; O2SAT 97
[2023-07-25 09:20] LABS: BASOPHILS # (AUTO) 0.1 K/uL (0.00-0.22); BASOPHILS % (AUTO) 0.5 % (0.0-2.0); EOSINOPHILS # (AUTO) 0.3 K/uL (0-0.4); HEMATOCRIT 29.7 % (36-48); HEMOGLOBIN 9.6 g/dL (12.0-16.0); LYMPHOCYTES # (AUTO) 2.1 K/uL (2.5-16.5); LYMPHOCYTES % (AUTO) 12.7 % (20.5-51.1); MEAN CORPUSCULAR HEMOGLOBIN 28 pg (27-31); MEAN CORPUSCULAR HGB CONC 33 g/dL (33-37); MEAN CORPUSCULAR VOLUME 84.5 fL (80-94); MONOCYTES # (AUTO) 0.7 K/uL (0.8-1.0); MONOCYTES % (AUTO) 4.2 % (1.7-9.3); NEUTROPHILS # (AUTO) 13.7 K/uL (1.8-7.7); NEUTROPHILS % (AUTO) 80.6 % (42.2-75.2); PLATELET COUNT (AUTO) 496 K/uL (140-450); RED BLOOD CELL COUNT(AUTO) 3.51 MIL/uL (4.20-5.40); RED CELL DISTRIBUTION WIDTH 14.4 % (11.6-13.7)
[2023-07-25 09:33] LABS: ANION GAP 6.6 (8-16); CALCIUM 8.1 mg/dL (8.5-10.1); CARBON DIOXIDE 33.3 mmol/L (21-32); CHLORIDE 101 mmol/L (98-107); CREATININE 0.5 mg/dL (0.6-1.3); GLUCOSE 104 mg/dL (74-106); POTASSIUM 3.9 mmol/L (3.5-5.1); SODIUM SERUM 137 mmol/L (136-145); UREA NITROGEN, BLOOD 5 mg/dL (7-18)
[2023-07-25] MEDS: ARIPiprazole 10 MG TAB PO SCH (09:44)
[2023-07-25] MEDS: SERTRALINE 50 MG TAB PO SCH (09:45)
[2023-07-25 11:15] VITALS: O2SAT 93
[2023-07-25] MEDS: FOAM DRESSING TP SCH (13:58)
[2023-07-25] MEDS: NON ADHERENT DRESSING TP SCH (13:58)
[2023-07-25] MEDS: cefTRIAXone 2,000 MG in DEXTROSE 5% 100 ML IV SCH (18:25)
[2023-07-25 19:26] VITALS: O2SAT 95
[2023-07-25 20:00] VITALS: BP 156/70; PULSE 110; RESP 18; RESP 20; TEMP 97.6; O2SAT 100
[2023-07-26] VITALS (7 sets, daily range): BP systolic 143–145; BP diastolic 71–75; PULSE 99–104; RESP 18; TEMP 97.5–97.8; O2SAT 87–100
[2023-07-26] MEDS: NACL 0.9% 1,000 ML IV SCH ×2 (00:28→08:26)
[2023-07-26] MEDS: Z-GUARD PASTE TP SCH ×2 (01:47→13:00)
[2023-07-26] MEDS: LEVOTHYROXINE 0.1 MG TAB PO SCH (06:02)
[2023-07-26] MEDS: SERTRALINE 50 MG TAB PO SCH (08:28)
[2023-07-26] MEDS: ARIPiprazole 10 MG TAB PO SCH (08:28)
[2023-07-26 09:39] LABS: BASOPHILS # (AUTO) 0.1 K/uL (0.00-0.22); BASOPHILS % (AUTO) 0.4 % (0.0-2.0); EOSINOPHILS # (AUTO) 0.3 K/uL (0-0.4); EOSINOPHILS % (AUTO) 1.7 % (0.0-4.0); HEMATOCRIT 26.3 % (36-48); HEMOGLOBIN 8.8 g/dL (12.0-16.0); LYMPHOCYTES % (AUTO) 12.8 % (20.5-51.1); MEAN CORPUSCULAR HEMOGLOBIN 28 pg (27-31); MEAN CORPUSCULAR HGB CONC 33 g/dL (33-37); MEAN CORPUSCULAR VOLUME 83.7 fL (80-94); MONOCYTES # (AUTO) 0.7 K/uL (0.8-1.0); MONOCYTES % (AUTO) 4.5 % (1.7-9.3); NEUTROPHILS # (AUTO) 12.5 K/uL (1.8-7.7); NEUTROPHILS % (AUTO) 80.6 % (42.2-75.2); PLATELET COUNT (AUTO) 512 K/uL (140-450); RED BLOOD CELL COUNT(AUTO) 3.15 MIL/uL (4.20-5.40); RED CELL DISTRIBUTION WIDTH 14.5 % (11.6-13.7); WHITE BLOOD COUNT (AUTO) 15.5 K/uL (4.8-10.8)
[2023-07-26 09:48] LABS: ALANINE AMINOTRANSFERASE 21 U/L (12-78); ALBUMIN 1.6 g/dL (3.4-5.0); ALKALINE PHOSPHATASE 87 U/L (50-136); ANION GAP 6.3 (8-16); ASPARTATE AMINOTRANSFERASE 24 U/L (15-37); CALCIUM 7.9 mg/dL (8.5-10.1); CARBON DIOXIDE 31.6 mmol/L (21-32); CHLORIDE 102 mmol/L (98-107); CREATININE 0.5 mg/dL (0.6-1.3); GLUCOSE 141 mg/dL (74-106); SODIUM SERUM 137 mmol/L (136-145); TOTAL BILIRUBIN 0.3 mg/dL (0.0-1.0); TOTAL PROTEIN, SERUM 6.8 g/dL (6.4-8.2); UREA NITROGEN, BLOOD 7 mg/dL (7-18)
[2023-07-26 09:51] LABS: POTASSIUM 2.9 mmol/L (3.5-5.1)
[2023-07-26] MEDS: MAG SULF 2000 MG/WATER PREMIX 50 ML IV PRN (11:01)
[2023-07-26] MEDS: FOAM DRESSING TP SCH (13:00)
[2023-07-26] MEDS: NON ADHERENT DRESSING TP SCH (13:00)
[2023-07-26] MEDS ORDERED: POTASSIUM CHLORIDE 40 MEQ, LIDOCAINE 1% 25 MG in NACL 0.9% 250 ML IV SCH (13:00)
[2023-07-26] MEDS ORDERED: ROC2I IV (14:43)
[2023-07-26] MEDS: cefTRIAXone 2,000 MG in DEXTROSE 5% 100 ML IV SCH (16:57)
== END 2023-07-26 18:50 | DRG 871 ==
LOC: MED 10:57 → MTU 18:18
PROVIDERS: ADMIT Hospitalist; ATTEND Hospitalist
DX: A41.9 Sepsis, unspecified organism (principal); E43 Unspecified severe protein-calorie malnutrition; J96.00 Acute respiratory failure, unspecified whether with hypoxia or hypercapnia; N39.0 Urinary tract infection, site not specified; E03.9 Hypothyroidism, unspecified; M06.9 Rheumatoid arthritis, unspecified; K21.9 Gastro-esophageal reflux disease without esophagitis; F31.9 Bipolar disorder, unspecified; Z20.822 Contact with and (suspected) exposure to COVID-19; I10 Essential (primary) hypertension; F20.9 Schizophrenia, unspecified; Z88.1 Allergy status to other antibiotic agents; Z88.0 Allergy status to penicillin; Z88.8 Allergy status to other drugs, medicaments and biological substances; Z79.899 Other long term (current) drug therapy; Z79.891 Long term (current) use of opiate analgesic; Z68.33 Body mass index [BMI] 33.0-33.9, adult
CPT/HCPCS: 36415; 36600; 71045; 74018; 80048; 80053; 81001; 82140; 82550; 82803; 83605; 83690; 83735; 83880; 84439; 84443; 84484; 85025; 87040; 87070; 87081; 87086; 93005; 96361; 96365; 96366; 99285; C9113; J0696; J2001; J2060; J2270; J2543; J3370; J3475; J3480; J7030; J7060; Q0092

== ENCOUNTER 2023-09-24 19:04 | Emergency (ER) | payer MEDICARE, OTHER ==
[~2023-09-24] VITALS: Ht 157.5 cm; Wt 49.9 kg
[~2023-09-24 19:04] MED LIST changes: -DEXT100S62 IV; +ROC2I IV; -SYN.05 PO
[2023-09-24 19:15] VITALS: BP 93/44; PULSE 112; RESP 20; TEMP 98.6; O2SAT 99
[2023-09-24] MEDS ORDERED: NACL 0.9% 2,000 ML IV ONE (19:20)
[2023-09-24 19:28] VITALS: O2SAT 98
[2023-09-24] MEDS ORDERED: cefTRIAXone 1,000 MG VIAL ONE (20:07)
[2023-09-24 20:28] LABS: BASOPHILS # (AUTO) 0.2 K/uL (0.00-0.22); EOSINOPHILS # (AUTO) 0.5 K/uL (0-0.4); EOSINOPHILS % (AUTO) 3.1 % (0.0-4.0); HEMATOCRIT 29.9 % (36-48); HEMOGLOBIN 9.5 g/dL (12.0-16.0); LYMPHOCYTES # (AUTO) 3.3 K/uL (2.5-16.5); LYMPHOCYTES % (AUTO) 18.3 % (20.5-51.1); MEAN CORPUSCULAR HEMOGLOBIN 26 pg (27-31); MEAN CORPUSCULAR HGB CONC 32 g/dL (33-37); MEAN CORPUSCULAR VOLUME 79.9 fL (80-94); MONOCYTES # (AUTO) 0.9 K/uL (0.8-1.0); MONOCYTES % (AUTO) 5.1 % (1.7-9.3); NEUTROPHILS # (AUTO) 12.9 K/uL (1.8-7.7); NEUTROPHILS % (AUTO) 72.5 % (42.2-75.2); PLATELET COUNT (AUTO) 511 K/uL (140-450); RED BLOOD CELL COUNT(AUTO) 3.74 MIL/uL (4.20-5.40); RED CELL DISTRIBUTION WIDTH 18.1 % (11.6-13.7); WHITE BLOOD COUNT (AUTO) 17.8 K/uL (4.8-10.8)
[2023-09-24 20:55] LABS: CREATINE KINASE, TOTAL 83 U/L (26-192); LACTIC ACID 1.9 mmol/L (0.4-2.0)
[2023-09-24 21:05] LABS: ALANINE AMINOTRANSFERASE 41 U/L (12-78); ALBUMIN 2.2 g/dL (3.4-5.0); ALKALINE PHOSPHATASE 161 U/L (50-136); ANION GAP 11.5 (8-16); ASPARTATE AMINOTRANSFERASE 26 U/L (15-37); CALCIUM 8.6 mg/dL (8.5-10.1); CARBON DIOXIDE 25.9 mmol/L (21-32); CHLORIDE 100 mmol/L (98-107); CREATININE 0.6 mg/dL (0.6-1.3); GLUCOSE 159 mg/dL (74-106); SODIUM SERUM 135 mmol/L (136-145); TOTAL BILIRUBIN 0.2 mg/dL (0.0-1.0); TOTAL PROTEIN, SERUM 7.5 g/dL (6.4-8.2); UREA NITROGEN, BLOOD 22 mg/dL (7-18)
[2023-09-24 21:09] LABS: POTASSIUM 2.4 mmol/L (3.5-5.1)
[2023-09-24] MEDS ORDERED: KCL 20 MEQ IN 100 mL PREMIX 200 ML IV ONE (21:15)
[2023-09-24 22:00] VITALS: O2SAT 98
[2023-09-24 22:15] LABS: APPEARANCE,URINE CLEAR (CLEAR); BILIRUBIN,URINE NEGATIVE (NEGATIVE); BLOOD, URINE 3+ (NEGATIVE); COLOR,URINE YELLOW (YELLOW); LEUKOCYTE ESTERASE ,URINE 3+ (NEGATIVE); NITRITE, URINE POSITIVE (NEGATIVE); PROTEIN,URINE 1+ (NEGATIVE); UGLUCOSE NEGATIVE (NEGATIVE); UROBILINOGEN,URINE 0.2 EU/dL (0.2 - 1)
[2023-09-24 22:28] LABS: BACTERIA,URINE >30 (MANY) /HPF (None Seen); MUCUS,URINE 1+ /LPF (None Seen); SQUAMOUS EPITHELIAL CELL,UR 0-3 (FEW) /LPF (0-3 (FEW)); WBC,URINE TOO MANY TO COUNT /HPF (0-5)
[2023-09-24] MEDS ORDERED: VANCOMYCIN 1,000 MG in DEXTROSE 5% 250 ML IV ONE (22:55)
[2023-09-25 00:23] VITALS: O2SAT 98
[2023-09-25] MEDS ORDERED: VANCOMYCIN 1,000 MG VIAL ONE (01:51)
[2023-09-25] MEDS ORDERED: KCL 20 MEQ IN 100 mL PREMIX 100 ML IV ONE (03:33)
[2023-09-25] MEDS ORDERED: ACETAMINOPHEN EXTRA STRENGTH 500 MG TAB PO ONE (04:15)
[2023-09-25 04:17] VITALS: O2SAT 94
[2023-09-25 05:14] VITALS: BP 143/45; PULSE 101; RESP 24
== END 2023-09-25 05:18 | disposition short-term general hospital (02) ==
LOC: MED 19:04
DX: N39.0 Urinary tract infection, site not specified (principal); E87.6 Hypokalemia; L89.150 Pressure ulcer of sacral region, unstageable; E86.0 Dehydration; E03.9 Hypothyroidism, unspecified; K21.9 Gastro-esophageal reflux disease without esophagitis; I25.10 Atherosclerotic heart disease of native coronary artery without angina pectoris; Z88.5 Allergy status to narcotic agent; Z88.8 Allergy status to other drugs, medicaments and biological substances; Z79.899 Other long term (current) drug therapy
CPT/HCPCS: 36415; 71045; 74177; 80053; 81001; 82550; 82553; 83605; 83735; 83874; 83880; 84484; 85025; 85651; 86140; 87040; 87086; 93005; 96365; 96366; 96367; 99285; J0696; J3370; J3480; J7030; Q9967; 96361